=== PATIENT | female | born 1995 | race Caucasian/White ===

== ENCOUNTER 2016-11-07 01:02 | Emergency (ER) | payer BC ==
--- NOTE | 2016-11-07 01:06 | EDPHY ---
H & P HPI/ROS: HPI CHIEF COMPLAINT: Alcohol Intoxication HISTORY OF PRESENT ILLNESS: This patient very pleasant 19-year-old female, she admits to drinking large amount of Tequila this evening. She became intoxicated hit her mouth and jaw on possibly the toilet. She presents emergency room by EMS highly intoxicated with alcohol and tearful she has bleeding coming from intraoral mouth lower jaw line. She did not lose any teeth however her lower frontal incisors appear loose. There is blood present. Unclear if there is a jaw fracture. She has no malocclusion. She denies any other areas of trauma. Past Medical History: No significant medical history Past Surgical History: No significant surgical history Social History: Denies daily use of drugs alcohol tobacco products was drinking this evening. Family History: Noncontributory ROS REVIEW OF SYSTEMS: A comprehensive 10 point review of systems is otherwise negative aside from elements mentioned in the history of present illness. Exam Constitutional Intoxicated, triage nursing summary reviewed, vital signs reviewed, Sleepy, smells of alcohol Eyes normal conjunctivae and sclera, horizontal beating nystagmus consistent acute alcohol intoxication, otherwise pupils equal and react to light HENT oropharynx: No malocclusion. Front lower incisors are loose. But still intact. Bleeding of the gumline present. I do not appreciate intraoral laceration. I do not appreciate open jaw line fracture. normal inspection, atraumatic, moist mucus membranes, no epistaxis, neck supple/ no meningismus, no raccoon eyes. Respiratory clear to auscultation bilaterally, normal breath sounds, no respiratory distress, no wheezing. Cardiovascular rate normal, regular rhythm, no murmur, no edema, distal pulses normal. Gastrointestinal soft, non-tender, no rebound, no guarding, normal bowel sounds, no distension, no pulsatile mass. Genitourinary no CVA tenderness. Musculoskeletal no midline vertebral tenderness, full range of motion, no calf swelling, no tenderness of extremities, no meningismus, good pulses, neurovascularly intact. Skin pink, warm, & dry, no rash, skin atraumatic. Neurologic sleepy, intoxicated with alcohol,, alert and oriented x 3, AAOx3, moves all 4 extremities equally, motor intact, sensory intact, CN II-XII intact , , normal vision, normal speech. Psychiatric normal mood/affect. Heme/Lymph/Immune no lymphadenopathy. Differential Diagnosis: Includes but is not limited to in a particular order acute alcohol intoxication, alcohol abuse, dehydration, electrolyte abnormality , nausea vomiting from acute alcohol intoxication Medical Decision Making: Plan for this patient breath alcohol, CT maxillofacial to rule out significant facial fracture jaw line fracture. Her teeth are loose on the lower frontal incisors. Bleeding present. Will give her gauze for packing at this time. She will need to follow up with her dentist. Re-evaluation: CT scan of the maxillofacial without IV contrast The results of the study are this shows a nondisplaced oblique fracture through the mental region of the jaw , goes between lateral and central incisors 25 and 26, nondisplaced. The study was read by Dr. Kuhn I viewed the images myself on the PACS system. [id number]: I have updated this patient on the results of her CT scan. She will need to follow up with oral maxillofacial surgery. I referred her. I will place her on Augmentin. She understands return emergency room if she has worsening pain or signs of further infection. There is no signs infection at this time. She understands she has a jaw fracture. Augmentin for antibiotics Porter for pain control. Source: Patient, EMS - Personal History Tetanus Vaccine Date: 2012 - Medical/Surgical History Hx Asthma: No Hx Chronic Respiratory Disease: No Hx Diabetes: No Hx Cardiac Disease: No Hx Renal Disease: No Hx Cirrhosis: No Hx Alcoholism: No Hx HIV/AIDS: No Hx Splenectomy or Spleen Trauma: No Other PMH: UTI, borderline high cholesterol - Social History Smoking Status: Light smoker Constitutional: Initial Vital Signs Temperature (C) 36.9 C 11/07/16 01:09 Heart Rate 110 H 11/07/16 01:09 Respiratory Rate 19 11/07/16 01:09 Blood Pressure 130/95 H 11/07/16 01:09 O2 Sat (%) 96 11/07/16 01:09 O2 Delivery Mode Room Air Allergies/Adverse Reactions: No Known Allergies Allergy (Unverified 02/21/14 22:48) Home Medications: Medication Instructions Recorded Bcp 02/21/14 Amoxicillin/Clavulanate Pot 875 mg PO BID #14 tab 11/07/16 [Augmentin 875 MG TAB (*)] Hydrocodone/APAP 5/325 [Porter 1 - 2 tab PO Q4H PRN #10 tab 11/07/16 5/325] Ibuprofen [Motrin (*)] 800 mg PO Q6-8PRN #7 tab 11/07/16 clonAZEPAM [Klonopin] 0.125 mg PO 11/07/16 Departure - Departure Disposition: Home, Routine, Self-Care Clinical Impression: Alcoholic intoxication Qualifiers: Complication of substance-induced condition: uncomplicated Qualified Code(s): F10.120 - Alcohol abuse with intoxication, uncomplicated Dental trauma Qualifiers: Encounter type: initial encounter Qualified Code(s): S09.93XA - Unspecified injury of face, initial encounter Jaw fracture Qualifiers: Encounter type: initial encounter Fracture type: closed Qualified Code(s): S02.609A - Fracture of mandible, unspecified, initial encounter for closed fracture Condition: Good Instructions: Alcohol Intoxication (ED), Acute Dental Trauma (ED), Toothache ( ED) Additional Instructions: 1. Return emergency room if he develops any worsening symptoms questions or concerns 2. Return if worsening pain or fever. 3. Please call oral maxillofacial surgery for an appointment followed. Referrals: Patient,NotPresent [Primary Care Provider] - As per Instructions Estuardo Benavidez DDS [Doctor of Dental Surgery] - As per Instructions Prescriptions: Amoxicillin/Clavulanate Pot [Augmentin 875 MG TAB (*)] 875 mg PO BID #14 tab Hydrocodone/APAP 5/325 [Porter 5/325] 1 - 2 tab PO Q4H PRN #10 tab PRN Reason: Pain, Moderate Ibuprofen [Motrin (*)] 800 mg PO Q6-8PRN #7 tab
[2016-11-07 01:34] VITALS: O2SAT 96
[2016-11-07] MEDS ORDERED: AMOXICILLIN/CLAVULANATE POT 875/125 MG TAB PO ONE (01:40)
[2016-11-07 02:07] VITALS: BP 104/72; PULSE 90; RESP 18; TEMP 98.2
== END 2016-11-07 02:06 | disposition home or self-care (01) ==
LOC: EDUNIT#
DX: S02.609A Fracture of mandible, unspecified, initial encounter for closed fracture (principal); F10.120 Alcohol abuse with intoxication, uncomplicated; F17.200 Nicotine dependence, unspecified, uncomplicated; W22.8XXA Striking against or struck by other objects, initial encounter